=== PATIENT | female | born 1960 | race Caucasian/White ===

== ENCOUNTER 2016-12-11 09:01 | Day surgery (SDC) | payer OTHER ==
[2016-12-08 10:30] VITALS: BMI 37.7
[2016-12-11] MEDS ORDERED: PROPOFOL 20 ML ONE ×2 (09:12)
[2016-12-11 11:48] VITALS: TEMP 97.6
[2016-12-11 12:17] VITALS: BP 138/73; PULSE 64
== END 2016-12-11 12:10 | disposition home or self-care (01) ==
LOC: FASU-ENDO 09:01
PROVIDERS: ATTEND Internal Medicine Gastroenterology
PROC: 0DJD8ZZ Inspection of Lower Intestinal Tract, Via Natural or Artificial Opening Endoscopic (ICD-10-PCS; principal; 2016-12-11 11:08)
DX: Z12.11 Encounter for screening for malignant neoplasm of colon (principal); Z80.0 Family history of malignant neoplasm of digestive organs